=== PATIENT | female | born 1960 | race Caucasian/White ===

== ENCOUNTER → 2023-08-28 14:54 | Outpatient (CLI) | payer OTHER, SELFPAY ==
--- NOTE | 2023-08-28 15:00 | MM_ITS ---
PROCEDURE INFORMATION: Exam: MG Bilateral Screening 3D Mammography Exam date and time: 08/28/2023 2:48 PM Age: 63 years old Clinical indication: Screening examination TECHNIQUE: Imaging protocol: Bilateral Screening tomosynthesis and 2D mammography including computer-aided detection (CAD) when performed. COMPARISON: No relevant prior studies available. FINDINGS: MAMMOGRAPHY: Breast composition: There are scattered areas of fibroglandular density. Mass: None. Architectural distortion: None. Calcifications: No suspicious calcifications. Asymmetric density: None. Skin thickening: None. Axillary adenopathy: None. IMPRESSION: No mammographic evidence of malignancy. Annual screening is recommended unless otherwise clinically indicated. ASSESSMENT: BI-RADS Category 1: Negative
--- NOTE | 2023-08-28 15:00 | CT_ITS ---
FINAL REPORT CLINICAL HISTORY: TOBACCO USEr smoker, .5 ppd x 50 years COMPARISON: None FINDINGS: CT CHEST LOW DOSE SCREENING HISTORY: Screening exam for lung cancer. Current smoker, 25 pack year smoking history DOSE: CTDIvol: 2.9 mGy, DLP: 106.55 mGy*cm COMPARISON: None . TECHNIQUE: Axial CT without IV contrast administration using low dose protocol FINDINGS: Moderate coronary artery calcifications are present. There are mild changes of emphysema and mild scarring present in the lungs bilaterally. There is a 4 mm nodule adjacent to the minor fissure in image #44. There is an 11 mm linear opacity contiguous with the right major fissure that may represent scar, seen on axial image #41. There is a 5 mm right lower lobe nodular opacity seen in axial image #42. There are multiple other small less than 5 mm in size nodules seen bilaterally, nonspecific. Calcified granulomas are present as well. No pleural or pericardial effusion is seen . No adenopathy or mass lesion is present . IMPRESSION: Moderate coronary artery calcifications along with changes of mild emphysema and mild scarring. Nodules as described above, along with multiple less than 5 mm noncalcified nodules noted bilaterally. LUNG RADS CATEGORY 2 RECOMMENDATION: 12 month LDCT follow up Reviewed, Interpreted and Dictated by Adrian Guadalupe III, MD Transcribed by Renata Mg Authenticated and . [facility]
== END ==
PROVIDERS: Visit Provider Nurse Practitioner Family
DX: Z12.31 Encounter for screening mammogram for malignant neoplasm of breast (principal); Z87.891 Personal history of nicotine dependence; Z12.2 Encounter for screening for malignant neoplasm of respiratory organs
CPT/HCPCS: 71271; 77063; 77067

== ENCOUNTER 2025-08-04 08:45 | Outpatient (CLI) | payer MEDICARE, SELFPAY ==
--- NOTE | 2025-08-04 08:47 | CT_ITS ---
FINAL REPORT CLINICAL HISTORY: SCREENING current smoker 1ppd x51 years COMPARISON: 08/28/2023 FINDINGS: CT CHEST LOW DOSE SCREENING HISTORY: Screening exam for lung cancer. 65-year-old female, current smoker, [id number] DOSE: CTDI vol: 2.90 mGy, DLP: 109.16 mGy*cm TECHNIQUE: Axial CT without IV contrast administration using low dose protocol. This study was performed with techniques to keep radiation doses as low as reasonably achievable, (ALARA). Individualized dose reduction techniques using automated exposure control or adjustment of mA and/or kV according to the patient's size were employed. No acute lung disease is present. There is a posterior right lower lobe peripheral nodule measuring 5 mm in size, best seen on image #43 of series 4, stable. There are nodules along the mid right major fissure and minor fissure, stable from prior exam, that are most compatible with perifissural lymph nodes. There is evidence of remote calcified granulomatous disease. There is scarring in the posterior segment of the right upper lobe, stable. No pleural or pericardial effusion is seen. No adenopathy or mass lesion is present. IMPRESSION: Stable exam without evidence of primary neoplasm. LUNG RADS CATEGORY 2 RECOMMENDATION: 12 month LDCT follow up Reviewed, Interpreted and Dictated by Chandana Amaya MD Transcribed by Renata Mg Authenticated and . [facility]
--- NOTE | 2025-08-04 08:48 | MM_ITS ---
PROCEDURE INFORMATION: Exam: MG Bilateral Screening 3D Mammography Exam date and time: 08/04/2025 8:49 AM Age: 64 years old Clinical indication: Screening examination TECHNIQUE: Imaging protocol: Bilateral Screening tomosynthesis and 2D mammography including computer-aided detection (CAD) when performed. COMPARISON: MG MM DIG SCREENING MAMM BI W/CAD 08/28/2023 2:48 PM FINDINGS: MAMMOGRAPHY: Breast composition: There are scattered areas of fibroglandular density. Mass: No suspicious masses. Architectural distortion: None. Calcifications: No suspicious calcifications. Asymmetric density: None. Skin thickening: None. Axillary adenopathy: None. IMPRESSION: No mammographic evidence of malignancy. Annual screening is recommended unless otherwise clinically indicated. ASSESSMENT: BI-RADS Category 1: Negative.
--- NOTE | 2025-08-04 09:15 | XR_ITS ---
FINAL REPORT TECHNIQUE: Bone densitometry calculations of the lumbar spine and bilateral hips were obtained. CLINICAL HISTORY: SCREENING COMPARISON: None FINDINGS: Using L1-4, the bone mineral density of the spine is 1.042 g/cm2, corresponding to T-score of 0.0. Using the left hip, the bone mineral density of the femoral neck is 0.825 g/cm2, corresponding to a T-score of -1.0. Using the right hip, the bone mineral density of the femoral neck is 0.753 g/cm?, corresponding to a T-score of -0.9. NOTE: T-score: Standard deviation compared with peak bone mass of young adult mean. *Following the recommendations of the International Society of Bone densitometry, classification of hip BMD is based on the lower of two T-scores; total hip or femoral neck. IMPRESSION: Diminished bone mineral density of the left hip consistent with osteopenia. Normal bone mineral density of the right hip and lumbar spine. Reviewed, Interpreted and Dictated by Chandana Amaya MD Transcribed by Renata Mg Authenticated and [facility]
== END 2025-08-04 23:59 | disposition home or self-care (01) ==
LOC: RAD 08:45
PROVIDERS: PCP Nurse Practitioner Family; Visit Provider Nurse Practitioner Family
DX: Z12.31 Encounter for screening mammogram for malignant neoplasm of breast (principal); R91.8 Other nonspecific abnormal finding of lung field; R93.7 Abnormal findings on diagnostic imaging of other parts of musculoskeletal system; R92.323 Mammographic fibroglandular density, bilateral breasts; Z87.891 Personal history of nicotine dependence
CPT/HCPCS: 71271; 77063; 77067; 77080